=== PATIENT | female | born 1945 | race Caucasian/White ===

== ENCOUNTER 2017-11-06 11:56 | Emergency (ER) | payer MEDICARE | END 2017-11-06 13:35 | disposition left against medical advice (07) | LOC: ED 13:29 | DX: Z53.21 Procedure and treatment not carried out due to patient leaving prior to being seen by health care provider (principal) | CPT/HCPCS: 99283 ==

== ENCOUNTER 2017-11-06 13:41 | Emergency (ER) | payer MEDICARE ==
[~2017-11-06] VITALS: Ht 160 cm; Wt 51.9 kg
[2017-11-06 13:57] VITALS: BP 178/107
[2017-11-06] MEDS ORDERED: KETOROLAC 30 MG/1 ML IM ONE (15:30)
[2017-11-06] MEDS ORDERED: KETOROLAC 30 MG/1 ML ONE (15:48)
== END 2017-11-06 16:12 | disposition home or self-care (01) ==
LOC: ED 16:00
DX: S49.92XA Unspecified injury of left shoulder and upper arm, initial encounter (principal); X58.XXXA Exposure to other specified factors, initial encounter; Y93.89 Activity, other specified; Y92.89 Other specified places as the place of occurrence of the external cause; Y99.9 Unspecified external cause status
CPT/HCPCS: 96372; 99283; J1885

== ENCOUNTER → 2019-03-21 | Outpatient (CLI) | payer MEDICARE | END | disposition home or self-care (01) | LOC: CFH 09:41 | PROVIDERS: ATTEND Family Medicine | DX: Z12.31 Encounter for screening mammogram for malignant neoplasm of breast (principal); Z88.8 Allergy status to other drugs, medicaments and biological substances | CPT/HCPCS: 77067 ==

== ENCOUNTER 2020-09-12 15:22 | Emergency (ER) | payer MEDICARE ==
[~2020-09-12] VITALS: Ht 157.5 cm; Wt 61.3 kg
[2020-09-12 15:46] VITALS: BP 148/88
[2020-09-12] MEDS ORDERED: DIPH,PERTUSS(ACELL),TET VAC/PF 0.5 ML IM-VACC ONE ×2 (16:00→17:19)
--- NOTE | 2020-09-12 16:33 | NUR ---
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
[2020-09-12] MEDS ORDERED: BACITRACIN OINT 500U/GM, 28GM EXT ONE (18:00)
== END 2020-09-12 18:55 | disposition home or self-care (01) ==
LOC: ED 16:54
DX: S06.0X0A Concussion without loss of consciousness, initial encounter (principal); S00.81XA Abrasion of other part of head, initial encounter; W01.0XXA Fall on same level from slipping, tripping and stumbling without subsequent striking against object, initial encounter; I10 Essential (primary) hypertension; Y93.89 Activity, other specified; Y92.89 Other specified places as the place of occurrence of the external cause; Y99.8 Other external cause status
CPT/HCPCS: 70450; 70486; 90471; 90715; 99285

== ENCOUNTER 2020-09-23 11:40 | Outpatient (CLI) | payer MEDICARE | END 2020-09-23 23:59 | disposition home or self-care (01) | LOC: RAD 11:40 | PROVIDERS: ATTEND Family Medicine | DX: M51.37 Other intervertebral disc degeneration, lumbosacral region (principal); M25.551 Pain in right hip; M25.552 Pain in left hip; W01.0XXA Fall on same level from slipping, tripping and stumbling without subsequent striking against object, initial encounter; Y93.89 Activity, other specified; Y92.89 Other specified places as the place of occurrence of the external cause; Y99.8 Other external cause status | CPT/HCPCS: 72100; 73523 ==